=== PATIENT | female | born 2000 | race Two or more races ===

== ENCOUNTER 2024-06-09 10:32 | Emergency (ER) | payer OTHER ==
[~2024-06-09] VITALS: Ht 162.6 cm; Wt 59.0 kg
[2024-06-09] MEDS ORDERED: RINGERS SOLUTION,LACTATED 1,000 ML IV STA (12:28)
[2024-06-09] MEDS ORDERED: DEXAMETHASONE SODIUM PHOSPHATE 4 MG/ML VIAL IV STA (12:30)
[2024-06-09] MEDS ORDERED: DEXAMETHASONE SODIUM PHOSPHATE 4 MG/ML VIAL ONE (13:52)
[2024-06-09 14:38] LABS: HEMATOCRIT 43.1 % (36.0-45.00); HEMOGLOBIN 15.2 g/dL (12.0-15.00); MEAN CELL VOLUME 84.1 fL (80.00-100.00); MEAN CORPUSCULAR HEMOGLOBIN 29.6 pg (27.00-32.0); MEAN CORPUSCULAR HGB CONC 35.2 g/dl (32.0-36.0); PLATELET COUNT 151 K/uL (150-450); RED BLOOD COUNT 5.12 M/uL (4.00-6.00); RED CELL DISTRIBUTION WIDTH 13.8 % (11.5-14.5)
[2024-06-09 14:49] LABS: INR 1.03; PROTHROMBIN TIME 10.8 SECONDS (9.0-11.5)
[2024-06-09 14:52] LABS: CALCIUM 8.9 mg/dL (8.5-10.1); CREATININE SERUM 0.66 mg/dL (0.55-1.02); GFR 111.99; POTASSIUM 3.36 mEq/L (3.5-5.1)
[2024-06-09 14:58] LABS: PH,URINE 6.5 (5.0-8.0); URINE APPEARANCE Clear; URINE BILIRRUBIN Negative (NEGATIVE); URINE BLOOD Moderate; URINE COLOR Yellow; URINE GLUCOSE Negative (NEGATIVE); URINE LEUKOCYTE Negative; URINE NITRATE Negative; URINE PROTEIN 30 (NEGATIVE)
[2024-06-09 15:03] LABS: URINE BACTERIA 1414.9 uL (0.0-1933); URINE EPITHELIAL CELLS 30.1 uL (0.0-38.8); URINE RBC 13.7 uL (0.0-20.8)
[2024-06-09 16:07] LABS: URINE CAST 0.15 uL (0.0-1.40); URINE KETONE >=160 (NEGATIVE)
[2024-06-09 16:08] LABS: URINE MUCUS MODERATE
== END 2024-06-09 17:33 | disposition home or self-care (01) ==
LOC: ER 10:33
PROVIDERS: General Practice
DX: B34.9 Viral infection, unspecified (principal)